=== PATIENT | male | born 1930 | race Caucasian/White ===

== ENCOUNTER 2021-03-30 19:13 | Emergency (ER) | payer OTHER ==
[~2021-03-30] VITALS: Ht 182.9 cm; Wt 63.5 kg
[2021-03-30 19:51] LABS: ABSOLUTE EOSINOPHILS 0.2 thou/uL (0.0-0.7); ABSOLUTE LYMPHOCYTES 1.8 thou/uL (0.8-5.3); ABSOLUTE MONOCYTES 0.5 thou/uL (0.0-1.2); ABSOLUTE NEUTROPHILS 2.1 thou/uL (1.6-8.1); EOSINOPHILS 3.3 %; HEMATOCRIT 37.9 % (42.0-52.0); HEMOGLOBIN 12.5 gm/dL (14.0-18.0); LYMPHOCYTES 39.8 %; MCHC 33.1 g/dL (28.0-37.0); MCV 87.7 fL (80.0-100.0); MPV 8.7 fl. (7.2-11.1); NUCLEATED RBCS 0 /100WBC; PLATELET COUNT* 141 thou/uL (150-400); POLYS 45.9 %; RBC 4.32 mil/uL (4.50-6.00); RDW-CV 14.5 % (10.5-14.5); WBC 4.6 thou/uL (4.0-11.0)
[2021-03-30 19:57] LABS: CALCIUM 8.8 mg/dL (8.5-10.1); CREATININE 1.3 mg/dL (0.6-1.3); POTASSIUM 4.3 mmol/L (3.5-5.1)
[2021-03-30 20:27] LABS: ALBUMIN 3.4 g/dL (3.4-5.0); MAGNESIUM 2.4 mg/dL (1.8-2.4); TOTAL BILIRUBIN 0.7 mg/dL (<0.1-1.0); TOTAL PROTEIN 7.2 g/dL (6.4-8.2)
[2021-03-30 20:38] LABS: URINE BILIRUBIN NEGATIVE (Negative); URINE BLOOD TRACE (Negative); URINE COLOR YELLOW; URINE GLUCOSE-RANDOM NEGATIVE (Negative); URINE KETONES NEGATIVE (Negative); URINE PROTEIN NEGATIVE (Negative); URINE SPECIFIC GRAVITY 1.015 (1.005-1.030); URINE UROBILINOGEN 0.2 E.U./dl (0.2-1.0)
[2021-03-30 20:39] LABS: URINE CLARITY CLOUDY; URINE LEUKOCYTES-REFLEX 3+ (Negative); URINE NITRITE-REFLEX POSITIVE (Negative)
[2021-03-30 20:46] LABS: BACTERIA-REFLEX >30 Many /HPF (None Seen); CASTS None Seen /LPF (None Seen); CRYSTALS None Seen /LPF (None Seen); SQUAMOUS 0-3 Few /LPF (0-3); URINE RBC 3-10 Few /HPF (0-2); URINE WBC-REFLEX >25 Many /HPF (0-5)
[2021-03-30] MEDS ORDERED: MACROBID 100 M100 M2 PO (21:16)
[2021-03-30 22:05] VITALS: BP 138/52
--- NOTE | 2021-03-31 15:20 | EKG ---
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: : [id number] Requested By: Shara Pineda Order Number: [id number] MD: Seven Viera Measurements Intervals [place] Rate: 79 P: 41 OR: 155 QRS: 21 QRSD: 100 T: 34 QT: 411 QTc: 472 Interpretive Statements Sinus rhythm Ventricular premature complex Probable left atrial enlargement Low voltage, extremity leads No previous ECG available for comparison Electronically Signed On 03-31-2021 15:20:46 [employer] by Seven Viera [email or web address] <ELECTRONICALLY SIGNED> By: Seven Viera MD, [facility] 03/31/21 1520 15 15 Seven Viera MD, [facility] /EPI
== END 2021-03-30 22:05 | disposition home or self-care (01) ==
LOC: M.ERS 19:13
PROVIDERS: Emergency Medicine
DX: N39.0 Urinary tract infection, site not specified (principal); Z20.822 Contact with and (suspected) exposure to COVID-19; R41.82 Altered mental status, unspecified